=== PATIENT | female | born 1985 | race Caucasian/White ===

== ENCOUNTER 2018-12-19 10:28 | Emergency (ER) | payer OTHER, SELFPAY ==
[2018-12-19 10:30] VITALS: BP 168/124; PULSE 77; RESP 13; TEMP 36.3; O2SAT 99
--- NOTE | 2018-12-19 11:00 | ED.GENADULT ---
HPI - General Adult General Chief complaint: Hypertension Stated complaint: high blood pressure today Time Seen by Provider: 12/19/18 10:38 Source: patient Mode of arrival: Ambulatory Limitations: no limitations History of Present Illness HPI narrative: 33-year-old female nonsmoker, otherwise healthy presents to the emergency department with a chief complaint of elevated blood pressure while at her primary care office to get a routine Pap smear. She denies any history of high blood pressure. She denies any symptoms such as headache, blurred vision, trouble with speech nor chest pain, shortness of breath, abdominal pain or neurologic symptoms such as numbness, weakness or tingling. She was sent here for evaluation. Onset (ago): minute(s) Treatments prior to arrival: none Related Data Previous Rx's Medication Instructions Recorded lisinopril 5 mg PO DAILY #30 tab 12/19/18 Allergies Allergy/AdvReac Type Severity Reaction Status Date / Time No Known Drug Allergies Allergy Verified 12/19/18 11:30 Review of Systems Constitutional Constitutional: Denies chills, Denies fatigue, Denies fever(s), Denies frequent falls, Denies lethargy and Denies weakness Eyes Eyes: Denies change in vision, Denies eye discharge, Denies irritation and Denies loss of vision ENT Ears, Nose, Mouth, and Throat: Denies change in voice, Denies dizziness, Denies neck pain, Denies sore throat and Denies throat swelling Cardiovascular Cardiovascular: Denies chest pain, Denies irregular heart rhythm, Denies lightheadedness, Denies palpitations, Denies dyspnea, Denies dyspnea on exertion and Denies orthopnea Respiratory Respiratory: Denies cough, Denies dyspnea, Denies dyspnea on exertion and Denies wheezing Gastrointestinal Gastrointestinal: Denies abdominal pain, Denies change in bowel habits, Denies diarrhea, Denies nausea and Denies vomiting Genitourinary Genitourinary: Denies hematuria, Denies flank pain, Denies urinary incontinence and Denies urinary urgency Musculoskeletal Musculoskeletal: Denies back pain, Denies muscle weakness, Denies neck pain, Denies numbness and Denies tingling Integumentary/Breasts Skin/Breast: Denies pruritus, Denies erythema, Denies rash and Denies wounds Neurologic Neurologic: Denies behavioral changes, Denies confusion, Denies dizziness, Denies frequent falls, Denies loss of vision, Denies numbness, Denies tingling and Denies weakness Psychiatric Psychiatric: Denies anxiety, Denies behavioral changes, Denies confusion, Denies depression, Denies homicidal ideation and Denies suicidal ideation Endocrine Endocrine: Denies fatigue, Denies flushing and Denies palpitations Hematologic/Lymphatic Hematologic/Lymphatic: Denies easy bruising Allergic/Immunologic Allergic/Immunologic: Denies urticaria, Denies throat swelling and Denies wheezing [facility] Social History Smoking Status: Never smoker Social History Smoking Status: Never smoker Exam Narrative Exam Narrative: GENERAL: [33] year old patient appears stated age. Well-nourished, well-developed patient, in mild distress. HEAD: Atraumatic. Normocephalic. EYES: Pupils equal round and reactive. Extraocular motions intact. No scleral icterus. No injection or drainage. ENT: Nose without bleeding, purulent drainage. Throat without erythema, tonsillar hypertrophy or exudate. Airway patent. NECK: Trachea midline. Non tender CARDIOVASCULAR: Regular rate and rhythm without murmurs, gallops, or rubs. RESPIRATORY: Clear to auscultation. Breath sounds equal bilaterally. No wheezes, rales, or rhonchi. GASTROINTESTINAL: Abdomen soft, non-tender, nondistended. EXTREMITIES: No edema or joint tenderness. BACK: Nontender without deformity or crepitance. No flank tenderness. NEURO: AOx3. SKIN: No rash or erythema of visible areas NIH Stroke Scale 1a. LOC: Patient is alert and keenly responsive (0) 1b. LOC Questions: Patient answers both LOC questions accurately (0) 1c. LOC Commands: Patient performs both tasks correctly (0) 2. Best Gaze: Normal (0) 3. Visual: No visual loss (0) 4. Facial palsy: Normal symmetrical movements (0) 5. Motor arm: No drift (0) 6. Motor leg: No drift (0) 7. Limb ataxia: Absent (0) 8. Sensory: Normal (0) 9. Best language: No aphasia; normal (0) 10. Dysarthria: Normal (0) 11. Extinction and inattention: No abnormality (0) NIHSS: 0 Initial Vital Signs Initial Vital Signs: Vital Signs Temperature 97.4 F L 12/19/18 10:30 Pulse Rate 77 12/19/18 10:30 Respiratory Rate 13 12/19/18 10:30 Blood Pressure 168/124 H 12/19/18 10:30 Pulse Oximetry 99 12/19/18 10:30 Course Orders Ordered: ED Orders 12/19/18 11:04 EKG-12 Lead Stat 12/19/18 11:10 Basic Metabolic Panel Stat Troponin & CK Cardiac Panel Stat Vital Signs Vital signs: Vital Signs - 8 hr 12/19/18 11:37 Pulse Rate 70 Respiratory Rate 16 Blood Pressure [Right Arm] 128/100 H Pulse Oximetry 98 Medical Decision Making Lab Data Result diagrams: 12/19/18 11:10 Labs: Lab Results 12/19/18 Range/Units 11:10 Sodium 139 (137-145) mmol/L Potassium 4.5 (3.4-5.1) mmol/L Chloride 105 (98-107) mmol/L Carbon Dioxide 25 (22-32) mmol/L BUN 9 (7-17) mg/dL Creatinine 0.60 (0.52-1.04) mg/dL Estimated GFR > 60.0 (>60) mL/min BUN/Creatinine Ratio 15.0 (6-22) Glucose 94 (70-100) mg/dL Calcium 9.5 (8.4-10.2) mg/dL Total Creatine Kinase 55 (30-135) U/L CK-MB (CK-2) TNP CK-MB (CK-2) Rel Index TNP Troponin I < 0.012 (0.01-0.034) ng/mL Discharge Plan Departure Patient Disposition: Home Clinical Impression: Hypertension Qualifiers: Hypertension type: essential hypertension Qualified Code(s): I10 - Essential (primary) hypertension Discharge Date/Time: 12/19/18 12:06 Instructions: DI for High Blood Pressure Activity Restrictions/Additional Instructions: *You have been diagnosed with [high blood pressure] *What to do: *Take medications as directed *Follow up with your primary care provider in 2-3 days, call for an appointment. Let them know you were seen in the Emergency Department and that we ask that you be seen in follow up *Return to ER if you should have any new, worsening or concerning symptoms Prescriptions: New lisinopril 5 mg tablet 5 mg PO DAILY Qty: 30 RF: 0
--- NOTE | 2018-12-19 11:06 | PC.NURSE ---
bp 2nd from triage 158/113. then left arm 148/109 md aware
[2018-12-19 11:37] VITALS: BP 128/100; PULSE 70; RESP 16; O2SAT 98
[2018-12-19 11:37] LABS: Blood Urea Nitrogen 9 mg/dL (7-17); Calcium 9.5 mg/dL (8.4-10.2); Carbon Dioxide 25 mmol/L (22-32); Chloride 105 mmol/L (98-107); Creatine Kinase 55 U/L (30-135); Estimated Glomerular Filt Rate > 60.0 mL/min (>60); Glucose 94 mg/dL (70-100); HEMOLYSIS < 15 (0-50); Potassium 4.5 mmol/L (3.4-5.1); Sodium 139 mmol/L (137-145)
[2018-12-19 11:48] LABS: Troponin I < 0.012 ng/mL (0.01-0.034)
== END 2018-12-19 12:06 | disposition home or self-care (01) ==
PROVIDERS: Emergency Provider Emergency Medicine
DX: I10 Essential (primary) hypertension (principal); R07.9 Chest pain, unspecified
CPT/HCPCS: 36415; 80048; 82550; 84484; 93005; 99282; 99284

== ENCOUNTER 2019-05-03 07:25 | Emergency (ER) | payer OTHER, SELFPAY ==
[2019-05-03 07:33] VITALS: BP 146/99; RESP 16; TEMP 36.8; O2SAT 99; BMI 29.1
--- NOTE | 2019-05-03 07:35 | ED.URI ---
HPI - URI/Sore Throat General Chief Complaint: Upper Respiratory Symptoms Stated Complaint: throat hurts x4 day Time Seen by Provider: 05/03/19 07:30 Source: patient Mode of arrival: Ambulatory Limitations: no limitations History of Present Illness HPI Narrative: 34-year-old female nonsmoker with history of hypertension presents with a chief complaint of 4 days of throat pain with difficulty swallowing and some body aches. She denies any runny nose, sneezing, cough nor nausea, vomiting or diarrhea. She does state it hurts when she swallows and improves occasionally with some Motrin. MD Complaint: sore throat Onset (ago): day(s) Duration: constant Severity: moderate Relieving factors: nothing Exacerbating factors: swallowing Description of mucous: clear Able to tolerate fluids by mouth: Yes Associated symptoms: other (body aches) Treatments prior to arrival: acetaminophen and ibuprofen Related Data Previous Rx's Medication Instructions Recorded lisinopril 5 mg PO DAILY #30 tab 12/19/18 Allergies Allergy/AdvReac Type Severity Reaction Status Date / Time No Known Drug Allergies Allergy Verified 12/19/18 11:30 Review of Systems Constitutional Constitutional: Reports body ache(s), Denies chills, Denies fatigue, Denies fever(s), Denies frequent falls, Denies lethargy and Denies weakness Eyes Eyes: Denies change in vision, Denies eye discharge, Denies irritation and Denies loss of vision ENT Ears, Nose, Mouth, and Throat: Denies change in voice, Denies dizziness, Denies neck pain, Reports sore throat and Denies throat swelling Cardiovascular Cardiovascular: Denies chest pain, Denies irregular heart rhythm, Denies lightheadedness, Denies palpitations, Denies dyspnea, Denies dyspnea on exertion and Denies orthopnea Respiratory Respiratory: Denies cough, Denies dyspnea, Denies dyspnea on exertion and Denies wheezing Gastrointestinal Gastrointestinal: Denies abdominal pain, Denies change in bowel habits, Denies diarrhea, Denies nausea and Denies vomiting Genitourinary Genitourinary: Denies hematuria, Denies flank pain, Denies urinary incontinence and Denies urinary urgency Musculoskeletal Musculoskeletal: Denies back pain, Denies muscle weakness, Denies neck pain, Denies numbness and Denies tingling Integumentary/Breasts Skin/Breast: Denies pruritus, Denies erythema, Denies rash and Denies wounds Neurologic Neurologic: Denies behavioral changes, Denies confusion, Denies dizziness, Denies frequent falls, Denies loss of vision, Denies numbness, Denies tingling and Denies weakness Psychiatric Psychiatric: Denies anxiety, Denies behavioral changes, Denies confusion, Denies depression, Denies homicidal ideation and Denies suicidal ideation Endocrine Endocrine: Denies fatigue, Denies flushing and Denies palpitations Hematologic/Lymphatic Hematologic/Lymphatic: Denies easy bruising Allergic/Immunologic Allergic/Immunologic: Denies urticaria, Denies throat swelling and Denies wheezing Patient History Social History Smoking Status: Never smoker Smoking Status: Never smoker Substance Use Type: does not use Exam Narrative Exam Narrative: GEN: AOx3 and in mild distress EYES: Pupils are equal, round, and reactive to light and accommodation. Extraoccular muscles are intact bilaterally. There is no subconjunctival hemorrhage or exudate. ENT: Posterior pharyngeal erythema with some clear postnasal drip, perhaps a small amount of whitish exudate. Tender anterior lymphadenopathy. Bilateral TMs are clear, flat, normal anatomic landmarks. Nose without drainage CHEST: Lungs are clear to auscultation bilaterally and free of wheezes, rales, or rhonchi. Heart rate is regular rhythm, there are no murmurs, clicks, rubs, or gallops. There is no chest wall tenderness. ABD: Abdomen is soft and nontender. There is no guarding or rebound. Bowel sounds are normal in all 4 quadrants. There is no mass or organomegaly. EXT: Full painless ROM of all extremities with no loss of sensation or strength. SKIN: Warm, pink, and dry. No erythema or rash Initial Vital Signs Initial Vital Signs: Vital Signs Temperature 98.2 F 05/03/19 07:33 Respiratory Rate 16 05/03/19 07:33 Blood Pressure 146/99 H 05/03/19 07:33 Pulse Oximetry 99 05/03/19 07:33 Course Orders Ordered: ED Orders 05/03/19 07:56 Influenza A & B (PCR) Stat Throat Culture Stat Vital Signs Vital signs: Vital Signs - 8 hr 05/03/19 07:33 Temperature 98.2 F Respiratory Rate 16 Blood Pressure [Left Arm] 146/99 H Pulse Oximetry 99 MDM - URI/Sore Throat Lab Data Labs: Lab Results 05/03/19 Range/Units 07:56 Influenza A (RT-PCR) Flu a negative (NEGATIVE) Influenza B (RT-PCR) Flu b negative (NEGATIVE) Discharge Plan Departure Patient Disposition: Home Clinical Impression: Pharyngitis Qualifiers: Pharyngitis/tonsillitis etiology: unspecified etiology Qualified Code(s): J02.9 - Acute pharyngitis, unspecified Instructions: DI for Pharyngitis/Tonsillopharyngitis -- Adult Activity Restrictions/Additional Instructions: *You have been diagnosed with [ acute viral pharyngitis. Flu considered but the swab is negative. Strep considered, but swab is negative. We ordered an additional throat culture which looks for other, less common, causes of throat infection. If this test comes back abnormal we will call you with instructions. ] *What to do: *Take medications as directed *Follow up with your primary care provider in 2-3 days, call for an appointment. Let them know you were seen in the Emergency Department and that we ask that you be seen in follow up *Return to ER if you should have any new, worsening or concerning symptoms Prescriptions: No Action lisinopril 5 mg tablet 5 mg PO DAILY Qty: 30 RF: 0
[2019-05-03 08:36] LABS: Influenza A - CEPHEID Flu A NEGATIVE (NEGATIVE); Influenza B - CEPHEID Flu B NEGATIVE (NEGATIVE)
[2019-05-03 08:46] VITALS: BP 134/98; PULSE 93; RESP 16; O2SAT 99
== END 2019-05-03 08:43 | disposition home or self-care (01) ==
PROVIDERS: Emergency Provider Emergency Medicine
DX: J02.9 Acute pharyngitis, unspecified (principal); I10 Essential (primary) hypertension
CPT/HCPCS: 87070; 87077; 87147; 87502; 87880; 99281; 99282

== ENCOUNTER 2021-06-14 12:12 | Emergency (ER) | payer OTHER, SELFPAY ==
[2021-06-14 12:22] VITALS: BP 169/101; PULSE 91; RESP 18; TEMP 36.3; O2SAT 100; BMI 30.7
--- NOTE | 2021-06-14 12:48 | ED_ITS ---
HPI - URI/Sore Throat <Mckay Constantino PA-C - Last Filed: 06/14/21 12:58> General Chief Complaint: Upper Respiratory Symptoms Stated Complaint: Swollen Tonsils/Sore Throat Time Seen by Provider: 06/14/21 12:15 Source: patient Mode of arrival: Ambulatory History of Present Illness HPI Narrative: Patient is a 36-year-old female presents to the ED complaining of severe sore throat that started 3 days ago. She reports that her child had been sick with strep throat like symptoms the week prior. 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 She has had her adenoids out however she was not able to get a tonsillectomy in the past. She reports fever like symptoms no nausea vomiting or diarrhea. She tried DayQuil and NyQuil without any relief. She was having to sit up at night she felt like she was choking lying flat. She does snore on a routine basis. Patient denies any shortness of breath occasional cough nonproductive dry. Denies any chest pain no reported nausea vomiting or diarrhea. Related Data Previous Rx's Medication Instructions Recorded lisinopril 5 mg tablet 5 mg PO DAILY #30 tab 12/19/18 amoxicillin 500 mg capsule 500 mg PO BID #20 cap 06/14/21 Allergies Allergy/AdvReac Type Severity Reaction Status Date / Time No Known Drug Allergies Allergy Verified 12/19/18 11:30 Review of Systems <Mckay Constantino PA-C - Last Filed: 06/14/21 12:58> Review of Systems ROS Unobtainable: All systems reviewed & are unremarkable except as noted in HPI and below Constitutional Constitutional: Denies chills, Denies fatigue, Denies fever(s), Denies frequent falls, Denies lethargy and Denies weakness Eyes Eyes: Denies change in vision, Denies eye discharge, Denies irritation and Denies loss of vision ENT Ears, Nose, Mouth, and Throat: Reports halitosis, Denies change in voice, Denies dizziness, Denies neck pain, Reports odynophagia, Reports sore throat and Reports throat swelling Cardiovascular Cardiovascular: Denies chest pain, Denies irregular heart rhythm, Denies lightheadedness, Denies palpitations, Denies dyspnea, Denies dyspnea on exertion and Denies orthopnea Respiratory Respiratory: Denies cough, Denies dyspnea, Denies dyspnea on exertion and Denies wheezing Gastrointestinal Gastrointestinal: Denies abdominal pain, Denies change in bowel habits, Denies diarrhea, Denies nausea, Reports odynophagia and Denies vomiting Genitourinary Genitourinary: Denies hematuria, Denies flank pain, Denies urinary incontinence and Denies urinary urgency Musculoskeletal Musculoskeletal: Denies back pain, Denies muscle weakness, Denies neck pain, Denies numbness and Denies tingling Integumentary/Breasts Skin/Breast: Denies pruritus, Denies erythema, Denies rash and Denies wounds Neurologic Neurologic: Denies behavioral changes, Denies confusion, Denies dizziness, Denies frequent falls, Denies loss of vision, Denies numbness, Denies tingling and Denies weakness Psychiatric Psychiatric: Denies anxiety, Denies behavioral changes, Denies confusion, Denies depression, Denies homicidal ideation and Denies suicidal ideation Endocrine Endocrine: Denies fatigue, Denies flushing and Denies palpitations Hematologic/Lymphatic Hematologic/Lymphatic: Denies easy bruising Allergic/Immunologic Allergic/Immunologic: Denies urticaria, Reports throat swelling and Denies wheezing Patient History <Mckay Constantino PA-C - Last Filed: 06/14/21 12:58> Social History Smoking Status: Never smoker Smoking Status: Never smoker alcohol intake frequency: a few times a week Substance Use Type: does not use Exam <Mckay Constantino PA-C - Last Filed: 06/14/21 12:58> Initial Vital Signs Initial Vital Signs: Vital Signs Temperature 97.4 F L 06/14/21 12:22 Pulse Rate 91 H 06/14/21 12:22 Respiratory Rate 18 06/14/21 12:22 Blood Pressure 169/101 H 06/14/21 12:22 Pulse Oximetry 100 06/14/21 12:22 Const General: cooperative, healthy appearing, comfortable and well developed Nutritional Appearance: average body habitus Orientation: Orientation [facility] Head: normal to inspection and normocephalic Ears: hearing grossly normal bilaterally, external ears normal and TM's normal bilaterally Nose: external nose normal, nares normal and nasal mucous membranes and turbinates normal Face and sinus: normal facial exam and sinuses nontender Mouth: oral mucosae normal and lip normal Throat: abnormal tonsil bilaterally erythema, exudates and hypertrophy 2+ Resp Effort & Inspection: normal respiratory effort and able to speak in complete sentences Auscultation: clear to auscultation bilaterally Percussion: percussion normal Cardio Palpation: normal PMI Rate: regular rate Rhythm: regular rhythm Heart Sounds: S1 normal and S2 normal <Lennie Kenny DO - Last Filed: 06/15/21 18:47> Initial Vital Signs Initial Vital Signs: Vital Signs Temperature 97.4 F L 06/14/21 12:22 Pulse Rate 91 H 06/14/21 12:22 Respiratory Rate 18 06/14/21 12:22 Blood Pressure 169/101 H 06/14/21 12:22 Pulse Oximetry 100 06/14/21 12:22 Course <Mckay Constantino PA-C - Last Filed: 06/14/21 12:58> Vital Signs Vital signs: Vital Signs - 8 hr 06/14/21 12:22 Temperature 97.4 F L Pulse Rate 91 H Respiratory Rate 18 Blood Pressure 169/101 H Pulse Oximetry 100 <DO Fernando Edward Last Filed: 06/15/21 18:47> Vital Signs Vital signs: Vital Signs - 8 hr 06/14/21 12:22 Temperature 97.4 F L Pulse Rate 91 H Respiratory Rate 18 Blood Pressure 169/101 H Pulse Oximetry 100 MDM - URI/Sore Throat <COSMO Shetty Last Filed: 06/14/21 12:58> Differential Diagnosis Differential diagnosis: Likely pharyngitis MDM Narrative Medical decision making narrative: Patient was evaluated today for sore throat. Based on her exam and her symptoms as likely this is strep in etiology and as such I will treat accordingly. A prescription for amoxicillin will be sent over to her pharmacy to be treated outpatient. I did speak to her about a 1 time shot of Bicillin of which she was not interested. Patient will be discharged home. Discharge Plan Departure Patient Disposition: Home Clinical Impression: Pharyngitis Instructions: DI for Strep Throat Activity Restrictions/Additional Instructions: Your treated today for what I suspect to be strep infection. I sent a prescription for amoxicillin [facility] to [facility] as you requested. After you take the antibiotic and the symptoms have resolved I would recommend that you consider following up with an physician credentialing specialist to have a consultation for a tonsillectomy. As I had spoken earlier your hypertrophic tonsils as well as the tonsillary stones are indicative of tonsillitis and of a chronic nature. Untreated tonsillitis can affect the cardiac valves and it is something that you should consider in the near future. Thank you for the opportunity to care for you today. Prescriptions: New amoxicillin 500 mg capsule 500 mg PO BID Qty: 20 0RF No Action lisinopril 5 mg tablet 5 mg PO DAILY Qty: 30 0RF Referrals: Miscellaneous,Doctor, MD [Primary Care Provider] - Stand Alone Forms: Work Release Note <Lennie Kenny DO - Last Filed: 06/15/21 18:47> Cosign ED Attending Cosignature Attestation: I was immediately available in the department for consultation. Documentation has been reviewed.
[2021-06-14 13:06] VITALS: BP 156/92; PULSE 103; RESP 16; O2SAT 103
== END 2021-06-14 13:07 | disposition home or self-care (01) ==
PROVIDERS: Emergency Provider Physician Assistant
DX: J02.9 Acute pharyngitis, unspecified (principal)
CPT/HCPCS: 99281

== ENCOUNTER 2022-01-16 12:19 | Emergency (ER) | payer OTHER, SELFPAY ==
[2022-01-16 13:36] VITALS: BP 148/104; PULSE 91; RESP 16; TEMP 36.1; O2SAT 97; BMI 30.7
[2022-01-16 14:04] LABS: COVID19 -Nasal RAPID Negative (Negative)
--- NOTE | 2022-01-16 14:43 | PC.NURSE ---
pt with swollen tonsils and small white patches visible on uvula. pain to talk and swallow. pt states that she has consulted to have a T&A potentially in the future due to this happening to her yearly. no covid exposure. swabbed for strep and covid which are both negative. throat culture sent. pt given option for full resp panel, however states if its not covid i really dont care. Radhames Smalls NP made aware. pt placed in rm 3
--- NOTE | 2022-01-16 14:53 | ED_ITS ---
HPI - URI/Sore Throat <SHANT Osorio - Last Filed: 01/16/22 15:04> General Chief Complaint: Upper Respiratory Symptoms Stated Complaint: swollen tonsills, sore throat, congestion Time Seen by Provider: 01/16/22 14:39 History of Present Illness HPI Narrative: 36-year-old female presents to the walk-in clinic with cough, congestion and sore throat x1 week. Patient has a toddler at home, who had a cold last week, that she suspects she developed her symptoms from. Patient is able to drink but has difficulty swallowing food due to the pain. Related Data Previous Rx's Medication Instructions Recorded lisinopril 5 mg tablet 5 mg PO DAILY #30 tabs 12/19/18 amoxicillin 500 mg capsule 500 mg PO BID #20 caps 06/14/21 amoxicillin 875 mg tablet 875 mg PO BID Pharyngitis 10 days 01/16/22 #20 tabs Allergies Allergy/AdvReac Type Severity Reaction Status Date / Time No Known Drug Allergies Allergy Verified 12/19/18 11:30 Review of Systems <SHANT Osorio - Last Filed: 01/16/22 15:04> Review of Systems Narrative: Narrative: See HPI. GENERAL: Denies chills, fatigue, fever, sweats. HEENT: Denies sinus pain, ear pain, , dizziness. Endorses sore throat and difficulty swallowing. RESPIRATORY: Denies dyspnea, cough, wheezing, sputum. CARDIOVASCULAR: Denies chest pain, palpitations, edema. GASTROINTESTINAL: Denies nausea, vomiting, abdominal pain, diarrhea, constipation. MSK: Denies weakness, joint pain, or bony pain. SKIN: Denies rash, skin lesions, or pruritis. NEUROLOGIC: Denies weakness, dizziness, headache, numbness, confusion. Patient History <SHANT Osorio - Last Filed: 01/16/22 15:04> Social History Smoking Status: Never smoker Smoking Status: Never smoker alcohol intake frequency: a few times a week Substance Use Type: does not use Exam <SHANT Osorio - Last Filed: 01/16/22 15:04> Narrative Exam Narrative: Exam Narrative: GENERAL: This is a well-nourished, well-developed patient, in no acute distress. HEAD: Atraumatic. Normocephalic. EYES: No scleral icterus, injection or drainage. ENT: Nose without bleeding, purulent drainage. Throat with erythema, tonsillar hypertrophy and exudate. Uvula midline. Airway patent. TMs and canals clear. Mild sinus tenderness. NECK: Trachea midline. No JVD or lymphadenopathy. Nontender. CARDIOVASCULAR: Regular rate and rhythm without murmurs, peripheral pulses intact, cap refill <2 sec. RESPIRATORY: Breath sounds equal and clear bilaterally. No wheezes, rales, or rhonchi. No cough. No increased respiratory effort. No accessory muscle use. MSK: Moves all extremities. Normal range of motion, no clubbing or edema. Neurovascularly intact. NEURO: A&O x 3. SKIN: Warm, dry, no rashes or lesions noted. Initial Vital Signs Initial Vital Signs: Vital Signs Temperature 97.0 F L 01/16/22 13:36 Pulse Rate 91 H 01/16/22 13:36 Respiratory Rate 16 01/16/22 13:36 Blood Pressure 148/104 H 01/16/22 13:36 Pulse Oximetry 97 01/16/22 13:36 Oxygen Delivery Method 01/16/22 13:36 Reviewed <Yuly Briseno DO - Last Filed: 01/18/22 21:30> Initial Vital Signs Initial Vital Signs: Vital Signs Temperature 97.0 F L 01/16/22 13:36 Pulse Rate 91 H 01/16/22 13:36 Respiratory Rate 16 01/16/22 13:36 Blood Pressure 148/104 H 01/16/22 13:36 Pulse Oximetry 97 01/16/22 13:36 Oxygen Delivery Method 01/16/22 13:36 Course <SHANT Osorio - Last Filed: 01/16/22 15:04> Orders Ordered: ED Orders 01/16/22 13:35 COVID19 -Nasal RAPID/Pre-Proc Stat Throat Culture Stat 01/16/22 14:30 Strep Grp A by PCR Rapid Stat 01/16/22 15:02 Throat Culture Stat Vital Signs Vital signs: Vital Signs - 8 hr 01/16/22 13:36 Temperature 97.0 F L Pulse Rate 91 H Respiratory Rate 16 Blood Pressure 148/104 H Pulse Oximetry 97 Oxygen Delivery Method Room Air <Yuly Briseno DO - Last Filed: 01/18/22 21:30> Orders Ordered: ED Orders 01/16/22 13:35 COVID19 -Nasal RAPID/Pre-Proc Stat Throat Culture Stat 01/16/22 14:30 Strep Grp A by PCR Rapid Stat 01/16/22 15:02 Throat Culture Stat Vital Signs Vital signs: Vital Signs - 8 hr 01/16/22 13:36 Temperature 97.0 F L Pulse Rate 91 H Respiratory Rate 16 Blood Pressure 148/104 H Pulse Oximetry 97 Oxygen Delivery Method Room Air MDM - URI/Sore Throat <SHANT Osorio - Last Filed: 01/16/22 15:04> Differential Diagnosis Differential diagnosis: Likely pharyngitis Lab Data Labs: Lab Results 01/16/22 01/16/22 Range/Units 13:35 14:30 SARS-CoV-2 (PCR) Negative (Negative) Group A Strep (PCR) Negative (Negative) Point of Care Testing Rapid Strep A Negative MDM Narrative Medical decision making narrative: 36-year-old female presents to the walk-in clinic with complaints of cough, congestion and sore throat x1 week. Rapid strep and COVID were both negative. Assessment was consistent with pharyngitis. Will treat clinically and send off a sample for culture and contact patient with results. Discussed supportive care measures including rest, hydration, gargling with warm salt water Tylenol or ibuprofen as needed with discomfort. Patient verbalized understanding and was agreeable with course of action. <Yuly Briseno DO - Last Filed: 01/18/22 21:30> Lab Data Labs: Lab Results 01/16/22 01/16/22 Range/Units 13:35 14:30 SARS-CoV-2 (PCR) Negative (Negative) Group A Strep (PCR) Negative (Negative) Point of Care Testing Rapid Strep A Negative Discharge Plan Departure Patient Disposition: Home Clinical Impression: Pharyngitis Instructions: DI for Strep Throat Activity Restrictions/Additional Instructions: *You have been diagnosed with pharyngitis. Your rapid strep was negative but we will send off a sample for culture and contact you with the results. Due to the severity of your symptoms, we will begin antibiotic therapy immediately. If your culture is negative, we will recommend that you stop the antibiotics, but if you decide to continue, must take the full regimen. Supportive care measures include gargling with warm salt water in the morning, cool fluids throughout the day, Tylenol or ibuprofen as needed for discomfort. Please follow-up with your family doctor or return to the ER for any worsening symptoms. *What to do: *Please continue to take your regular medications as directed. [x ] New medication prescriptions sent to your pharmacy: [[facility] [place] ] [ ] New medication written as a paper prescription [ ] No new medications given *Please follow up with your primary care provider in 2-3 days, call for an appointment. Let them know you were seen in the Emergency Department and that we ask that you be seen in follow up. We will electronically transmit a record of today's note if your PCP is in our system *If you do not have a primary care provider please contact the [facility] Resource line at [phone]. They will ask some questions about your medical history and help get you set up with a doctor in the community. ? Return to ER if you should have any new, worsening or concerning symptoms, such as worsening pain, severe headache, confusion, chest pain, difficulty breathing, fever greater than 101 F, shaking chills, persistent vomiting to the point that you cannot drink fluids, or other new or worsening symptoms. Prescriptions: New amoxicillin 875 mg tablet 875 mg PO BID 10 Days Qty: 20 0RF No Action amoxicillin 500 mg capsule 500 mg PO BID Qty: 20 0RF lisinopril 5 mg tablet 5 mg PO DAILY Qty: 30 0RF Referrals: Miscellaneous,Doctor, [Primary Care Provider] - Visit Report Forms: Patient Portal/API <Yuly Briseno DO - Last Filed: 01/18/22 21:30> Cosign ED Attending Jerome Attestation: I was immediately available in the department for consultation. Documentation has been reviewed. I agree with assessment and plan.
[2022-01-16 16:06] LABS: Strep Grp A by PCR Rapid Negative (Negative)
== END 2022-01-16 15:05 | disposition home or self-care (01) ==
PROVIDERS: Emergency Medicine; Emergency Provider Registered Nurse
DX: J02.9 Acute pharyngitis, unspecified (principal); Z20.822 Contact with and (suspected) exposure to COVID-19
CPT/HCPCS: 87070; 87077; 87147; 87635; 87651; 87880; 99281; 99282; C9803